=== PATIENT | female | born 1985 | race Caucasian/White ===

== ENCOUNTER 2024-12-12 19:21 | Emergency (ER) | payer MEDICAID, OTHER ==
[~2024-12-12] VITALS: Ht 162.6 cm; Wt 145.5 kg
--- NOTE | 2024-12-12 20:10 | ED.PDOC ---
HPI Comments 39 year old female presents to the ED with a chief complaint of chest pain onset 2 days. Patient states she began experiencing chest pain with palpations described as "irregular heartbeat" 2 days ago and noticed it worsen today with radiation to back and LUQ.. Patient also began experiencing shortness of breath. She experienced similar pain in past, resolved on its own. PMHx anxiety, panic attacks, asthma, vertigo. Denies dizziness, headache, nausea, vomiting, diarrhea, abdominal pain, numbness/tingling of extremities. No other symptoms or modifying factors present at this time. Chief Complaint: Chest Pain Time Seen by MD: 19:28 Reviewed Notes: Medications, Allergies Allergies: Coded Allergies: NO KNOWN ALLERGIES (Unverified , 12/12/24) Home Meds Active Scripts Hydroxyzine HCl (Hydroxyzine Hydrochloride) 50 Mg Tab, 50 MG PO Q6HP PRN, #30 TAB prn anxiety/panic attack Prov:BUSTER GARRIDO MD 12/12/24 Information Source: Patient Mode of Arrival: Ambulatory Severity: Moderate Timing: Days Duration: Since onset Prehospital treatment: None Location: Chest (L) Radiation: Abdomen (LUQ), Back Quality: Sharp Onset: At Rest Cardiac Risk Factors: None PE Risk Factors: None History of: Similar pain in past Modifying Factors: Nothing Associated Signs and Symptoms: SOB, Back Pain Past Medical History PAST MEDICAL HISTORY: Anxiety, Asthma Past Medical History (Other): obesity Surgical History: Denies all surgeries BOOK CLEANER History: No Pertinent BOOK CLEANER History Family History Family History: Unknown Social History Smoker: Non-Smoker Alcohol: Denies ETOH Use Drugs: Denies Drug Use Lives In: Home Constitutional: denies: chills, diaphoresis, fatigue, fever, malaise, sweats, weakness, others EENTM: denies: blurred vision, double vision, ear bleeding, ear discharge, ear drainage, ear pain, ear ringing, eye pain, eye redness, hearing loss, mouth pain, mouth swelling, nasal discharge, nose bleeding, nose congestion, nose pain, photophobia, tearing, throat pain, throat swelling, voice changes, others Respiratory: reports: shortness of breath; denies: cough, hemoptysis, orthopnea, SOB at rest, SOB with excertion, stridor, wheezing, others Cardiovascular: reports: chest pain, palpitations; denies: dizzy spells, diaphoresis, Dyspnea on exertion, edema, irregular heart beat, left arm pain, lightheadedness, PND, syncope, others Gastrointestinal: denies: abdomen distended, abdominal pain, blood streaked bowels, constipated, diarrhea, dysphagia, difficulty swallowing, hematemesis, melena, nausea, poor appetite, poor fluid intake, rectal bleeding, rectal pain, vomiting, others Genitourinary: denies: abnormal vagina bleeding, burning, dyspareunia, dysuria, flank pain, frequency, hematuria, incontinence, pain, , vagina discharge, urgency, others Neurological: denies: dizziness, fainting, headache, left sided numbness, left sided weakness, numbness, paresthesia, pre-existing deficit, right sided nu mbness, right sided weakness, seizure, speech problems, tingling, tremors, weakness, others Musculoskeletal: denies: back pain, gout, joint pain, joint swelling, muscle pain, muscle stiffness, neck pain, others Integumetry: denies: bruises, change in color, change in hair/nails, dryness, laceration, lesions, lumps, rash, wounds, others Allergic/Immunocompromised: denies: Difficulty Healing, Frequent Infections, Hives, Itching, others Hematologic/Lymphatic: denies: anemia, blood clots, easy bleeding, easy bruising, swollen glands, others Endocrine: denies: excessive hunger, excessive sweating, excessive thirst, excessive urination, flushing, intolerance to cold, intolerance to heat, unexplained weight gain, unexplained weight loss, others Psychiatric: reports: anxiety, panic disorder; denies: bipolar disorder, depression, hopeless, schizophrenia, sleepless, suicidal, others All Other Systems: Reviewed and Negative Physical Exam General Appearance: Mild Distress HEENT: Other (Pupils and face symmetric, moist mucous membranes) Neck: Full Range of Motion, Normal Inspection Respiratory: Lungs Clear, No Accessory Muscle Use, No Respiratory Distress, Normal Breath Sounds Cardiovascular: No Edema, No JVD, Tachycardia Breast Exam: Deferred Gastrointestinal: Non Tender, Soft Genitalia: Deferred Pelvic: Deferred Rectal: Deferred Extremities: Normal inspection, Normal range of motion, Non-tender, No pedal edema Neurologic: Alert (Oriented x4), Normal Affect, Other (Anxious. Ambulatory without difficulty. No gross focal deficit.) Cerebellar Function: NOT DONE Reflexes: NOT DONE Skin: Dry, Normal Color, Warm Lymphatic: NOT DONE EKG EKG : Comments Sinus tach, rate 115, normal intervals, normal axis, normal QRS, nonspecific T changes. Was a procedure done? Was a procedure done?: No CP Differential Dx Differential Diagnosis: Angina, Anxiety / Panic Attack, Heart Failure, Hyperv entilation, UT, Pulmonary Embolus Differential Diagnosis: CHF Differential Diagnosis: Chest Wall Pain, Esophageal reflux/spasm, Gastritis, Myocardial Infarction, Pericarditis, Pneumonia, Pneumothorax X-Ray, Labs, Meds, VS Vital Signs Date Time Temp Pulse Resp B/P (MAP) Pulse Ox O2 Delivery O2 Flow Rate FiO2 12/12/24 22:58 100 18 99 Room Air 12/12/24 22:58 99.0 100 18 158/100 (119) 99 99.0 12/12/24 19:27 99.0 101 18 138/84 (102) 99 12/12/24 19:27 115 Lab Test 12/12/24 20:30 12/12/24 19:28 Range/Units Troponin I High Sensitivity < 3 L < 3 L </=34 ng/L White Blood Count 12.0 H 4.4-10.8 10^3/uL Red Blood Count 4.74 4.0-5.20 10^6/uL Hemoglobin 12.8 12.2-16.2 g/dL Hematocrit 38.8 36.0-46.0 % Mean Corpuscular Volume 81.7 80.0-100.0 fL Mean Corpuscular Hemoglobin 27.1 L 28.0-32.0 pg Mean Corpuscular Hemoglobin Concent 33.1 32.0-36.0 g/dL Red Cell Distribution Width 15.5 H 11.8-14.3 % Platelet Count 274 140-450 10^3/uL Mean Platelet Volume 8.5 6.9-10.8 fL Neutrophils (%) (Auto) 75.3 37.0-80.0 % Lymphocytes (%) (Auto) 19.7 10.0-50.0 % Monocytes (%) (Auto) 3.9 0.0-12.0 % Eosinophils (%) (Auto) 0.7 0.0-7.0 % Basophils (%) (Auto) 0.4 0.0-2.0 % Neutrophils # (Auto) 9.1 H 1.6-8.6 10 ^3/uL Lymphocytes # (Auto) 2.4 0.4-5.4 10 ^3/uL Monocytes # (Auto) 0.5 0-1.3 10 ^3/uL Eosinophils # (Auto) 0.1 0-0.8 10 ^3/uL Basophils # (Auto) 0 0-0.2 10 ^3/uL Nucleated Red Blood Cells 0.0 % D-Dimer, Quantitative 0.46 0.0-0.49 mg/L FEU Sodium Level 139 136-145 mmol/L Potassium Level 3.7 3.5-5.1 mmol/L Chloride Level 106 98-107 mmol/L Carbon Dioxide Level 22 20-31 mmol/L Anion Gap 11 5-15 Blood Urea Nitrogen 15 9-23 mg/dL Creatinine 0.85 0.550-1.02 mg/dL Glomerular Filtration Rate Calc 90 >90 mL/min BUN/Creatinine Ratio 17.6 10.0-20.0 Serum Glucose 107 H 74-106 mg/dL Calcium Level 10.1 8.7-10.4 mg/dL B-Type Natriuretic Peptide 37.73 0-100 pg/mL Beta HCG, Quantitative 0.5 L 1.5-4.2 mIU/mL Current Medications Medications (Trade) Dose Ordered Sig/Samy Route Start Time Stop Time Status Last Admin Sodium Chloride 1,000 ml @ 1,000 mls/hr Q1H ONCE IV 12/12/24 20:00 12/12/24 20:59 DC 12/12/24 22:56 ORDERING PHYSICIAN: BUSTER GARRIDO MD PROCEDURE(s): CXRP - CHEST PORTABLE REASON: cp palpitations ORDER NUMBER(s): [id number], ACCESSION NUMBER(s): [id number] CHEST RADIOGRAPH Indication: cp palpitations Technique: Single frontal view of the chest was obtained COMPARISON: None FINDINGS: Lines and Tubes: None Lungs: Clear Pleura: No effusion. No pneumothorax. Cardiomediastinal contours: Unremarkable Bones: Unremarkable IMPRESSION: 1. No acute disease. ATED BY: KINSEY VELA MD DICTATED DATE/TIME: 12/12/242109 SIGNED BY: KINSEY VELA MD SIGNED DATE/TIME: 12/12/242109 PROCEDURE(s): CTACH - CT ANGIO CHEST CONTRAST REASON: cp, hi dimer r/o pe ORDER NUMBER(s): [id number], ACCESSION NUMBER(s): [id number] CTA Chest with intravenous contrast INDICATION: cp, hi dimer r/o pe COMPARISON: None available TECHNIQUE: Multidetector spiral CTA of the chest was performed of the chest with intravenous contrast. PULMONARY ANGIOGRAPHY PROTOCOL was utilized using a bolus- tracking technique centered on the main pulmonary artery. Axial, coronal and sagittal multiplanar and MIP reformats were performed. Radiation Dose : 1. Chest: CTDI volume is 26 mGy. Dose-length product is 2070 mGy*cm The dose indicators for CT are the volume Computed Tomography (CT) Dose Index (CTDIvol) and the Dose Length Product (DLP), and are measured in units of mGy and mGy-cm, respectively. These indicators are not patient dose, but values generated from the CT scanner acquisition factors. The report includes radiation exposure data for exposures received during this examination. Findings: Pulmonary artery: No pulmonary embolism Lower neck: Normal thyroid. Lungs: No focal consolidation, pleural effusion or pneumothorax. Heart/Vascular Structures: Normal heart size. No pericardial effusion. Lymph Nodes: No adenopathy Pleura: No pleural effusion or significant pneumothorax. Musculoskeletal: No acute osseous abnormality. Soft tissues: Normal. Upper abdomen: Limited portions of the upper abdomen are unremarkable. IMPRESSION: 1. No pulmonary embolism. 2. No acute thoracic finding. X-Ray, Labs, Meds, VS Comment 39-year-old female with a history of anxiety, asthma and morbid obesity complaining of chest pain and palpitations Vitals remarkable for heart rate 115 Exam remarkable for tachycardia and anxiousness Rhythm strip independently interpreted by me: Sinus tach, rate 115, no ectopy. Chest x-ray unremarkable CT angio chest IMPRESSION: 1. No pulmonary embolism. 2. No acute thoracic finding. CBC remarkable for WBC 12, metabolic panel, BNP and 2 serial troponins unremarkable, hCG negative, D-dimer 0.46 Patient treated with the following in the ED: 1 L 0.9 normal saline IV bolus, Ativan 1 mg IV. On re-evaluation, patient states symptoms have improved. Tachycardia has resolved. Other vitals are stable. Hospitalization was considered, however patient had rapid improvement of symptoms with treatment in the ED, and I no longer feel hospitalization is necessary. Patient appears stable for discharge with close outpatient follow-up with her primary physician for referral to a it service manager. Rx hydroxyzine Time of 1ST Reevaluation: 19:58 Reevaluation 1ST: Unchanged Patient Education/Counseling: Diagnosis, Treatment, Prognosis Family Education/Counseling: No Family Present Additional Information The following tests were ordered, and results were reviewed by me: EKG -x3, TROP -x3, CBC, XY CHEST, D-DIMER, BNP, UA, BMP, BETA HCG, I reviewed and agreed with the following test results read by other providers: XY CHEST I discussed treatment and results with medical personnel and: patient Departure 1 Departure Time of Disposition: 22:50 Impression: Primary Impression: Palpitations Additional Impressions: Chest pain with low risk for cardiac etiology Anxiety Disposition: HOME / SELF CARE / HOMELESS Condition: Stable Additional Instructions: Your blood tests, including heart testing were unremarkable. Your chest x-ray was normal. Your chest CT was normal. Follow-up with your primary doctor in 1- 2 days for referral to a it service manager for further evaluation of your palpitations and chest pain. e-Prescriptions Hydroxyzine HCl (Hydroxyzine Hydrochloride) 50 Mg Tab 50 MG PO Q6HP PRN, #30 TAB prn anxiety/panic attack Prov: BUSTER GARRIDO MD 12/12/24 Discharged With: Spouse Critical Care Note Critical Care Time?: No Stability Stability form required: No Heart Score Heart Score: Heart Score Response (Comments) Value History Slightly Suspicious 0 EKG Repolarization Disturb 1 Age <45 0 Risk Factors 1 or 2 risk factors 1 Troponin Normal limit 0 Total 2 I personally scribed for BUSTER GARRIDO MD ([email or web address]) on 12/12/24 at 20:10. Electronically submitted by Radha Bowman ([email or web address]). I personally scribed for BUSTER GARRIDO MD ([email or web address]) on 12/12/24 at 20:11. Electronically submitted by Radha Bowman ([email or web address]). I personally scribed for BUSTER GARRIDO MD ([email or web address]) on 12/12/24 at 21:46. Electronically submitted by Radha Bowman ([email or web address]). BUSTER GARRIDO MD Dec 12, 2024 20:10
[2024-12-12 20:19] LABS: Eosinophils # (auto) 0.1 10 ^3/uL (0-0.8); Eosinophils % (auto) 0.7 % (0.0-7.0); Hemoglobin 12.8 g/dL (12.2-16.2); Lymphocytes # (auto) 2.4 10 ^3/uL (0.4-5.4); Mean Corpuscular Volume 81.7 fL (80.0-100.0)
[2024-12-12 20:20] LABS: Chloride 106 mmol/L (98-107); Potassium 3.7 mmol/L (3.5-5.1); Sodium 139 mmol/L (136-145)
[2024-12-12 20:21] LABS: Anion Gap 11 (5-15); Basophils # (auto) 0 10 ^3/uL (0-0.2); Basophils % (auto) 0.4 % (0.0-2.0); Carbon Dioxide 22 mmol/L (20-31); Hematocrit 38.8 % (36.0-46.0); Lymphocytes % (auto) 19.7 % (10.0-50.0); Mean Corpuscular Hemoglobin 27.1 pg (28.0-32.0); Mean Corpuscular Hgb Conc. 33.1 g/dL (32.0-36.0); Monocytes # (auto) 0.5 10 ^3/uL (0-1.3); Monocytes % (auto) 3.9 % (0.0-12.0); Neutrophils # (auto) 9.1 10 ^3/uL (1.6-8.6); Neutrophils % (auto) 75.3 % (37.0-80.0); Platelet Count (auto) 274 10^3/uL (140-450); Red Blood Cells 4.74 10^6/uL (4.0-5.20); Red Cell Distribution Width 15.5 % (11.8-14.3)
[2024-12-12 20:22] LABS: Calcium 10.1 mg/dL (8.7-10.4)
[2024-12-12 20:27] LABS: BUN/Creatinine Ratio 17.6 (10.0-20.0); Blood Urea Nitrogen 15 mg/dL (9-23)
[2024-12-12 20:45] LABS: Glucose 107 mg/dL (74-106)
--- NOTE | 2024-12-12 21:13 | DVH ---
CHEST RADIOGRAPH Indication: cp palpitations Technique: Single frontal view of the chest was obtained COMPARISON: None FINDINGS: Lines and Tubes: None Lungs: Clear Pleura: No effusion. No pneumothorax. Cardiomediastinal contours: Unremarkable Bones: Unremarkable IMPRESSION: 1. No acute disease.
[2024-12-12] MEDS ORDERED: HYDR50TA32 PO (22:41)
[2024-12-12] MEDS: LORazepam 2MG/ML-1ML VIAL IV ONE (22:56)
[2024-12-12] MEDS: SODIUM CHLORIDE 0.9% 1,000 ML IV ONE (22:56)
[2024-12-12] MEDS: IOHEXOL 350 MG/ML 100ML IJ ONE (22:57)
--- NOTE | 2024-12-12 23:35 | DVH ---
CTA Chest with intravenous contrast INDICATION: cp, hi dimer r/o pe COMPARISON: None available TECHNIQUE: Multidetector spiral CTA of the chest was performed of the chest with intravenous contrast . PULMONARY ANGIOGRAPHY PROTOCOL was utilized using a bolus-tracking technique centered on the main p ulmonary artery. Axial, coronal and sagittal multiplanar and MIP reformats were performed. Radiation Dose : 1. Chest: CTDI volume is 26 mGy. Dose-length product is 2070 mGy*cm The dose indicators for CT are the volume Computed Tomography (CT) Dose Index (CTDIvol) and the Dose Length Product (DLP), and are measured in units of mGy and mGy-cm, respectively. These indicators are not patient dose, but values generated from the CT scanner acquisition factors. The report includes radiation exposure data for exposures received during this examination. Findings: Pulmonary artery: No pulmonary embolism Lower neck: Normal thyroid. Lungs: No focal consolidation, pleural effusion or pneumothorax. Heart/Vascular Structures: Normal heart size. No pericardial effusion. Lymph Nodes: No adenopathy Pleura: No pleural effusion or significant pneumothorax. Musculoskeletal: No acute osseous abnormality. Soft tissues: Normal. Upper abdomen: Limited portions of the upper abdomen are unremarkable. IMPRESSION: 1. No pulmonary embolism. 2. No acute thoracic finding.
[2024-12-13 01:00] VITALS: PULSE 93; RESP 18; O2SAT 98
[2024-12-13 01:10] VITALS: BP 161/97; PULSE 93; RESP 18; TEMP 99; O2SAT 98
--- NOTE | 2024-12-14 12:41 | ECG ---
[facility] Test Date: 2024-12-12 Test Time: 19:27:05 Pat Name: ERI MONTERO Department: ER Room: Gender: F Field Support Rep: BENIGNO : 1985 Requested By: BUSTER MOCK Order Number: [id number] Reading MD: Measurements Intervals Junction Rate: 115 P: 28 WA: 154 QRS: 50 QRSD: 80 T: 8 QT: 307 QTc: 425 Interpretive Statements Sinus tachycardia Low voltage, precordial leads Borderline T wave abnormalities Please click the below link to view image of tracing.
== END 2024-12-13 01:18 | disposition home or self-care (01) ==
LOC: ER 19:21
DX: R00.2 Palpitations (principal); R07.89 Other chest pain; F41.9 Anxiety disorder, unspecified; J45.909 Unspecified asthma, uncomplicated; E66.9 Obesity, unspecified; Z68.43 Body mass index [BMI] 50.0-59.9, adult
CPT/HCPCS: 36415; 71045; 71275; 80048; 83880; 84484; 84702; 85025; 85379; 93005; 96360; 99285; J7030; Q9967